=== PATIENT | female | born 1990 | race Caucasian/White ===

== ENCOUNTER 2021-06-03 11:20 | Inpatient (IN) | payer SELFPAY ==
[2021-06-03] MEDS ORDERED: Ringers Lactate 1,000 ML IV PRN (12:05)
[2021-06-03] MEDS ORDERED: BUTORPHANOL 1 MG/ML INJ IV PRN (12:05)
[2021-06-03] MEDS ORDERED: METHYLERGONOVINE 0.2MG/ML AMP IM PRN (12:13)
[2021-06-03] MEDS ORDERED: Ringers Lactate 1,000 ML IV SCH (13:00)
[2021-06-03] MEDS ORDERED: OXYTOCIN/LR 20 UNIT/1,000 ML BAG IV SCH ×3 (13:00→19:00)
[2021-06-03 13:39] LABS: Absolute Lymphocytes (CBC) 1.7 K/uL (0.7-4.9); Basophils % 0.2 % (0-1.3); Hematocrit 37.9 % (36.0-45.0); Lymphocytes % 13.9 % (15.3-44.8); MPV 10.5 fL (7.6-11.3); RBC Red Blood Cell Count 4.28 M/uL (3.86-4.86)
[2021-06-03 13:54] LABS: Urine Appearance CLEAR (Clear); Urine Bilirubin NEGATIVE (Negative); Urine Blood NEGATIVE (Negative); Urine Color YELLOW (Yellow); Urine Glucose NEGATIVE (Negative); Urine Protein NEGATIVE (Negative)
[2021-06-03 14:02] LABS: Urine Microscopic Reflex NO UMIC
[2021-06-03 14:14] VITALS: BMI 29.6
[2021-06-03] MEDS ORDERED: ROPIVACAINE HCL 0.2% 20ML AMP IV ONE (15:15)
[2021-06-03] MEDS ORDERED: FENTANYL CITR 100 MCG/2 ML IV ONE (15:15)
[2021-06-03] MEDS ORDERED: BUPIVACAINE 0.25% PF 10 ML VIAL IJ PRN (15:15)
[2021-06-03] MEDS ORDERED: FENTANYL/BUPIVACAINE/NS/PF 200 MCG/100 ML BAG EP PRN (15:15)
--- NOTE | 2021-06-03 15:37 | PREOPHP ---
Date of Admission: 06/03/2021 A 30-year-old 4, para 2, at 38 weeks and 3 days. 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 [place] has been discussed on several occasions during her . She has had 2 term pregnancies at 38 weeks and 39 weeks. The patient came in early labor, approximately 3 cm on admissi on. She is now 3.5 cm, adonis regularly. Baby is at -1 station, ruptured membranes, clear flui d. Strep test is negative. She is Rh positive, immune to Rubella. Positive for COVID, but really n o symptoms whatsoever. The patient is an RN. Anticipate delivery sometime later this evening. Labo r talk given. Family History: Noncontributory. Her maternal grandmother had throat cancer. Maternal aunt had joey g cancer. Mother with heart attack. No one in family with diabetes. Mother with hypertension as we ll. Physical Examination: Vital Signs: All normal. HEENT: Clear. Pupils equal, round, reactive to light accommodation. Conjunctivae well perfused. N o oral, lingual, or buccal lesions. Chest and lungs: Clear. Heart: Without murmurs, thrills, heaves, or rubs. Breasts: Without masses on previous visits. Abdomen: Term size. Estimated weight 7.5 pounds or more. Extremities: Clear without edema, cyanosis, or clubbing. Anticipate delivery later this evening. FLORA/JUAN Voice ID: [id number]
[2021-06-03] MEDS ORDERED: ROPIVACAINE HCL 0 ML EP ONE (16:50)
[2021-06-03] MEDS ORDERED: ROPIVACAINE HCL 0.2% 20ML AMP EP ONE (17:00)
[2021-06-03] MEDS ORDERED: BISACODYL 10 MG RECTAL SUPP PR PRN (18:48)
[2021-06-03] MEDS ORDERED: DIPHENHYDRAMINE 25 MG TAB/CAP PO PRN (18:48)
[2021-06-03] MEDS ORDERED: DOCUSATE NA/SENNA CONC 1 TAB PO PRN (18:48)
[2021-06-03] MEDS ORDERED: Oxycodone HCl/Acetaminophen 1 TAB TAB PO PRN ×2 (18:48)
[2021-06-03] MEDS ORDERED: ACETAMINOPHEN 500 MG TAB PO PRN (18:48)
[2021-06-03] MEDS ORDERED: IBUPROFEN 600 MG TAB PO PRN (18:56)
--- NOTE | 2021-06-03 19:13 | OP ---
Surgeon: Garrett Garber MD Procedure In Detail: Betzy Alcocer is a 30-year-old, 5, para 2, 2 miscarriages, at 38 weeks 3 d ays, came in labor. Received epidural anesthesia, which gave excellent effect. Second stage of abou t 30-35 minutes. Spontaneous vaginal delivery of a 7-pound 8 ounces female. Nuchal cord x1. Apgars 9 and 10. No episiotomy. No lacerations, worthy of suturing. Schultze delivery of the placenta. Uterus contracted down extremely well. Less than 50 mL blood loss. The patient tolerated all proced ures well. Rh positive, immune to Rubella. Negative strep. The patient had tested positive for COV ID, completely asymptomatic. Final Diagnoses: Term intrauterine , 38 weeks 3 days, spontaneous labor, vaginal delivery, epidural anesthesia, nuchal cord. Positive COVID status on admission, asymptomatic. FLORA/MODL Voice ID: [id number] Report ID: [id number]
[2021-06-03] MEDS ORDERED: ROPIVACAINE EP ONE (19:48)
[2021-06-04 02:51] LABS: RPR (Rapid Plasma Reagin) NON-REACT (NON-REACT)
--- NOTE | 2021-06-04 09:35 | DS ---
A 30-year-old, 5, para 2, 38 weeks 3 days, came in active labor. Subsequently, delivered a 7 pounds 8 ounces female, Apgars 9 and 10. Nuchal cord x1. No episiotomy. No laceration. Schultze delivery of the placenta. Uterus contracted down extremely well. Minimal blood loss, 50 cc or less. Rh positive, immune to Rubella. Negative strep, but positive COVID. Completely asymptomatic. Pos tpartum; afebrile, ambulating and voiding. Lochia is normal. She will be dismissed later this after noon or tomorrow morning to report back to my office in 6 weeks for followup. Report any temperature elevation of 100 degrees or greater, severe pain, heavy bleeding, or any other type of abnormalities . Requests no analgesics on dismissal. Full instructions given. Final Diagnoses: Term intrauterine at 38 weeks 3 days, spontaneous labor, vaginal delivery , nuchal cord. Epidural anesthesia. Positive COVID status on admission, asymptomatic. FLORA/JUAN Voice ID: [id number] Report ID: [id number]
[2021-06-04 20:45] VITALS: BP 128/73; TEMP 97.6
[2021-06-08 19:32] LABS: HBsAG Nonreactive (Nonreactive)
== END 2021-06-04 21:05 | disposition home or self-care (01) | DRG 805 ==
LOC: L&D 11:20 → 2ND-WC 12:36
PROVIDERS: ADMIT Specialist; ATTEND Specialist
PROC: 10E0XZZ Delivery of Products of Conception, External Approach (ICD-10-PCS; principal; 2021-06-03)
PROC: 10907ZC Drainage of Amniotic Fluid, Therapeutic from Products of Conception, Via Natural or Artificial Opening (ICD-10-PCS; 2021-06-03)
DX: O98.52 Other viral diseases complicating childbirth (principal); U07.1 COVID-19; Z37.0 Single live birth; Z3A.38 38 weeks gestation of pregnancy
CPT/HCPCS: 36415; 81003; 85025; 86592; 87340; J2210; J2590; J2795; J3010; J7120